=== PATIENT | female | born 1980 | race Caucasian/White ===

== ENCOUNTER 2021-03-03 20:16 | Emergency (ER) | payer BC, OTHER, SELFPAY ==
[2021-03-03 20:46] VITALS: BP 103/63; PULSE 92; RESP 16; TEMP 36.4; O2SAT 98; BMI 19.7
[2021-03-03 20:55] VITALS: BP 103/63; PULSE 92; RESP 16; TEMP 36.4; O2SAT 98
--- NOTE | 2021-03-03 21:36 | ED.ALCOHOL ---
HPI - Alcohol General Chief Complaint: Psychiatric Symptoms Stated Complaint: SECTION 12,SI Time Seen by Provider: 03/03/21 21:04 Source: patient Mode of arrival: ambulatory Limitations: other (clinically intoxicated) History of Present Illness HPI narrative: Patient is a 40-year-old female with no significant past medical history who was BIBA after making statements to her brother that she did not want to be alive and wanted to be with her mother who 10 years ago. Patient states she was sober for 10 years and started drinking a few months ago and had 5 nips a day. She states people were attacking her on Facebook and mother's day post and really got to her and then she drank alcohol and that she became emotional. She states she has absolutely no intention of harming herself, has no plan. Has no history of anxiety depression. Takes no mental health medications and does not see a therapist or psychiatrist. Patient denies auditory hallucinations, visual hallucinations or thoughts of harming others. Related Data Allergies Allergy/AdvReac Type Severity Reaction Status Date / Time clarithromycin [From BIAXIN] Allergy Unknown HIVES Unverified 07/10/20 15:24 Review of Systems Review of Systems: Yes all other systems are reviewed and are negative [facility] Social History Social History Alcohol intake: current Alcohol intake frequency: 3 or more drinks per day Alcohol type: hard liquor Smoking Status: Current every day smoker Use of substances other than those prescribed or required for medical reasons: No Advance Directives: No Advance Directives Information Provided: Yes Patient : No Physical Exam Vital Signs: Vital Signs: Last Vital Signs Temp 97.5 F 03/03/21 20:55 Pulse 92 03/03/21 20:55 Resp 16 03/03/21 20:55 BP 103/63 03/03/21 20:55 Pulse Ox 98 03/03/21 20:55 Body Mass Index 19.7 Const: General: cooperative, healthy appearing, comfortable and intoxicated appearing Nutritional Appearance: average body habitus Orientation/consciousness: patient oriented x3 HENMT: Head: Yes normal to inspection, Yes No palpable skull fracture present, Yes normocephalic and Yes atraumatic Ears: hearing grossly normal bilaterally General nose exam: Normal external nose present Face and sinus: Yes normal facial exam Eyes: General: appearance normal, both eyes and all related structures Neck: Neck: Yes normal visual inspection, Yes full ROM and Yes supple Resp: Effort & Inspection: normal respiratory effort and able to speak in complete sentences Skin: General skin exam: no rashes or lesions noted Neuro: General: patient oriented x3 Extrem: General: Yes normal to inspection and Yes full ROM Course Course Course Narrative: Patient is a 40-year-old female who was BIBA after making SI statements after becoming intoxicated. Patient is clinically intoxicated. Patient is requesting to leave and is trying to obtain a ride home. I told her I would write a work note for her for tomorrow. She wants to leave because she is concerned about getting stuck care and not being able to go to work tomorrow. She does states she had a COVID test this morning and it was negative. She does not appear to have any symptoms in her vital signs are stable. Reevaluation(s) Reevaluation #1: Patient has obtained a ride home from someone who will assume responsibility to getting her home and staying with her for the night. Patient appears to have a situational depression and never actually stated she wanted to kill herself. She seems to have been triggered by mother's Day and on the Facebook posts and then drinking alcohol. Will diet counselor patient on seeking therapy for her drinking and her situational depression. Time: 21:43 MDM - Alcohol Lab Data Labs: Lab Results 03/03/21 Range/Units 21:21 COVID-19 (MANUEL) Negative (Negative) COVID-19 Clin Com See Note Discharge Plan Discharge Clinical Impression: Situational depression Alcohol intoxication Qualifiers: Complication of substance-induced condition: uncomplicated Qualified Code(s): F10.920 - Alcohol use, unspecified with intoxication, uncomplicated Patient Disposition: Home, Self-Care Instructions: Alcohol Intoxication (ED) Additional Instructions: I would recommend following up with your primary care doctor and perhaps seeking some talk therapy to help you with your situational depression. Would also recommend some alcohol counseling. Please do not drive a motor vehicle until you are sober, please stay with your sober ride home until the effects of the alcohol you have drink today have worn off. Please do not drink any more alcohol today. Referrals: Ted Finnegan MD [Physician] - 2 days (follow up ED visit, alcohol intoxication and situational depression)
[2021-03-03 21:44] LABS: COVID-19 Test Negative (Negative)
[2021-03-03 21:58] LABS: Amphetamine Screen Urine Not Detected (Not Detect); Barbiturates, Urine Not Detected (Not Detect); Benzodiazepines Screen Urine Not Detected (Not Detect); Cannabinoid Screen Urine Not Detected (Not Detect); Cocaine Screen Urine Not Detected (Not Detect); Opiate Screen Urine Not Detected (Not Detect); Phencyclidine Screen Urine Not Detected (Not Detect)
[2021-03-03 22:05] LABS: Ethanol 278 mg/dL
== END 2021-03-03 22:07 | disposition home or self-care (01) ==
PROVIDERS: Physician Assistant; Emergency Provider Internal Medicine
DX: F32.89 Other specified depressive episodes (principal); F10.920 Alcohol use, unspecified with intoxication, uncomplicated; Y90.8 Blood alcohol level of 240 mg/100 ml or more; F17.200 Nicotine dependence, unspecified, uncomplicated; Z20.822 Contact with and (suspected) exposure to COVID-19
CPT/HCPCS: 36415; 80307; 80320; 87635; 99284

== ENCOUNTER 2022-06-27 14:10 | Emergency (ER) | payer BC, OTHER, SELFPAY ==
--- NOTE | 2022-06-27 14:26 | ED.ALCOHOL ---
HPI - Alcohol General Chief Complaint: ETOH/Substance Use Stated Complaint: ETOH Time Seen by Provider: 06/27/22 14:22 Source: patient and EMS Mode of arrival: EMS History of Present Illness HPI narrative: 41-year-old female with a past medical history of ETOH abuse brought in by ambulance S[facility]P bystand[facility] Patient was found by EMS in her car drinking. Patient reports wanting to go back to [place]. Denies SI/HI. Denies illicit substances. Will not quantify amount of ETOH used. Patient is emotional. Denies any injury/trauma or fall MD complaint: alcohol intoxication Last drink: Just prior to admission Related Data Allergies Allergy/AdvReac Type Severity Reaction Status Date / Time clarithromycin [From BIAXIN] Allergy Unknown HIVES Unverified 07/10/20 15:24 Review of Systems Review of Systems: ROS limited secondary to patient's acute intoxication Psych: No Depression, No SI/H Yes all other systems are reviewed and are negative Constitutional: Constitutional: Reports as per HPI COUNT INCLUDES THE [facility] Past Medical History Attestation statement: The following information was validated with the patient. Social History Social History Alcohol intake: current Alcohol intake frequency: 3 or more drinks per day Alcohol type: hard liquor Advance Directives: No Advance Directives Information Provided: Yes Physical Exam ED Vital Signs: Vital Signs - 24 hr 06/27/22 14:28 06/27/22 16:11 Temperature 98.1 F Pulse Rate 110 H 99 Respiratory Rate 15 16 Blood Pressure 117/81 96/67 Pulse Oximetry 96 96 Oxygen Delivery Method Room Air Room Air BMI result Body Mass Index 24.2 Const Other: + EtOH odor on breath General: no acute distress and intoxicated appearing Orientation/consciousness: patient oriented x3 Limitations: no limitations HENMT Head: Yes normal to inspection, Yes atraumatic, No Joel's sign and No raccoon eyes Ears: hearing grossly normal bilaterally General nose exam: Normal external nose present Face and sinus: Yes normal facial exam Eyes General: appearance normal, both eyes and all related structures EOM: EOMs intact bilaterally Neck Neck: Yes normal visual inspection and Yes no meningeal signs Resp Effort & Inspection: normal respiratory effort and no respiratory distress Cardio Rate: regular rate Heart sounds: S1 normal heart sound present and S2 normal heart sound present GI Inspection: Yes normal to inspection Palpation (GI): Soft to palpation, nontender, no guarding and not rigid Skin Rashes: no rashes Wounds: no wounds Neuro General: patient oriented x3, tone normal, moves all extremities and no meningeal signs Extrem General: Yes normal to inspection Course Course Course Narrative: -[id number]--was just informed by patient's nurse that patient eloped to the ED, this was unwitnessed. Police and security were notified MDM - Alcohol MDM Narrative Medical decision making narrative: 41-year-old female with a past medical history of ETOH abuse brought in by ambulance S/P bystander called stating patient was [place]. On exam vital signs stable ETOH odor on breath, no evidence of trauma, [place], initially combative however redirectable. Denies SI. Plan: Observe and reassess for clinical sobriety Medical Records Attestation: I reviewed the patient's medical records. Lab Data Attestation: I reviewed the patient's lab results. Discharge Plan Discharge Clinical Impression: Alcohol intoxication Patient Disposition: Still a Patient Instructions: Abuse of Alcohol (ED) Additional Instructions: Do not drink alcohol or take drugs this can kill you If you have thoughts of hurting herself or others return to the emergency department Referrals: ED Physician,Generic [Emergency Provider] -
[2022-06-27 14:28] VITALS: BP 117/81; BP 122/82; PULSE 110; RESP 15; O2SAT 96; BMI 24.2
[2022-06-27 16:11] VITALS: BP 96/67; PULSE 99; RESP 16; TEMP 36.7; O2SAT 96
== END 2022-06-27 20:22 | disposition still patient (30) ==
PROVIDERS: Emergency Provider Internal Medicine
DX: F10.129 Alcohol abuse with intoxication, unspecified (principal); Y90.9 Presence of alcohol in blood, level not specified
CPT/HCPCS: 99283

== ENCOUNTER 2025-04-14 13:16 | Emergency (ER) | payer BC, OTHER, SELFPAY ==
[2025-04-14 13:27] VITALS: BP 138/80; PULSE 97; RESP 20; TEMP 36.4; O2SAT 95; BMI 24.3
--- NOTE | 2025-04-14 13:29 | ED_ITS ---
HPI - Altered Mental Status General Chief Complaint: ETOH/Substance Use Stated Complaint: ETOH Time Seen by Provider: 04/14/25 13:26 History of Present Illness HPI narrative: Patient is a 44-year-old female presented today with agitation after drinking. Patient was in police custody. Police felt patient was to sedated. Decided to bring patient to the ED. on arrival patient became very agitated. Moving around. Screaming. Patient's sugar was checked by EMS to be a 94. Patient unable to give detailed history Related Data Allergies Allergy/AdvReac Type Severity Reaction Status Date / Time clarithromycin (From BIAXIN) Allergy Unknown HIVES Verified 04/14/25 13:29 Review of Systems 2 Review of Systems: unable to obtain review of systems [facility] Social History Social History Unable to assess alcohol history related to: Unknown Alcohol intake: current Alcohol intake frequency: 3 or more drinks per day Alcohol type: hard liquor Advance Directives: No Advance Directives Information Provided: No Do you have a plan to hurt others: No Plan Physical Exam ED Vital Signs: Vital Signs - 24 hr 04/14/25 13:27 04/14/25 14:18 Temperature 97.6 F Pulse Rate 97 81 Respiratory Rate 20 14 Blood Pressure 138/80 94/59 L Pulse Oximetry 95 92 Oxygen Delivery Method Room Air Room Air BMI result Body Mass Index 24.3 Appearance: lethargic but moving all extremity. Screaming. Eyes: Pupils equal, round and reactive to light. ENT: Pharynx normal. Neck: Normal inspection. Neck supple. No lymph nodes noted. No crepitus CVS: Normal heart rate and rhythm. Pulses normal. Normal S1 and S2 Respiratory: No respiratory distress. Breath sounds normal. No Wheezing. No rales Abdomen: Soft and nontender. No rigidity. No distention. good BS x4 Skin: Skin warm and dry. Normal skin color. Normal skin turgor. Extremities: No lower extremity edema. Neurovascular intact to all extremities. No Lacerations. No Rash Neuro: Oriented X 3. No motor deficit. No sensory deficit. Moving all extermities. No slurred speech Medications Administered Discontinued Medications Generic Name Dose Route Start Last Admin Trade Name Freq PRN Reason Stop Dose Admin Diphenhydramine HCl 50 mg 04/14/25 13:27 04/14/25 15:33 Diphenhydramine Hcl 50 Mg/Ml Vial IM 04/14/25 13:28 Not Given ONCE ONE Haloperidol Lactate 5 mg 04/14/25 13:27 04/14/25 15:33 Haloperidol Lactate 5 Mg/Ml Vial IM 04/14/25 13:28 Not Given ONCE ONE Sodium Chloride 1,000 mls @ 999 mls/hr 04/14/25 13:30 04/14/25 15:33 Ns IV 04/14/25 14:30 Not Given .Q1H1M MARIO ALBERTO Midazolam HCl 2 mg 04/14/25 13:27 04/14/25 15:33 Midazolam Hcl 2 Mg/2 Ml Vial IM 04/14/25 13:28 Not Given ONCE ONE Medical Decision Making Medical Decision Making [facility] Narrative: patient alcohol was approximately 400. At 15:30 patient is now awake alert. Aware that she is in the hospital. Aware self. Oriented. Will discharge to PD. In stable condition. Differential Diagnosis Alcohol intoxication Admission/Observation Consideration of admission/observation: Escalation of care including admission/observation considered Lab Data [facility] Lab Attestation statement: I reviewed the patient's lab results. 04/14/25 13:50 04/14/25 13:50 Labs: Lab Results 04/14/25 Range/Units 13:50 WBC 9.6 (4.8-10.8) X10*3/uL RBC 4.90 (4.20-5.50) X10*6/uL Hgb 15.7 (12.0-16.0) g/dl Hct 44.7 (37.0-47.0) % MCV 91.2 (80.0-98.0) fL MCH 32.0 (27.0-33.0) pg MCHC 35.1 H (31.0-35.0) g/dl RDW 13.0 (11.0-16.0) % Plt Count 284 (160-400) X10*3/uL MPV 9.8 (9.4-12.3) fL Immature Gran % (Auto) 0.6 H (0.0-0.4) % Neut % (Auto) 49.7 (45-73) % Lymph % (Auto) 37.0 (20-40) % Starke % (Auto) 6.8 (2-11) % Eos % (Auto) 4.4 H (0-4) % Baso % (Auto) 1.5 (0-2) % Lymph # (Auto) 3.6 (1.2-4.9) X10*3/uL Starke # (Auto) 0.7 (0.1-1.2) X10*3/uL Eos # (Auto) 0.4 (0.0-0.4) X10*3/uL Baso # (Auto) 0.1 (0.0-0.2) X10*3/uL Abs Immat Gran (auto) 0.06 H (0.00-0.03) X10*3/uL Absolute Neuts (auto) 4.8 (2.0-8.3) x10*3/uL Absolute Nucleated RBC 0.000 (0.0-0.012) X10*3/uL Nucleated RBC % (auto) 0.0 (0.0-0.2) /100WBC Sodium 144 (135-145) mmol/L Potassium 3.5 (3.3-5.1) mmol/L Chloride 111 H (96-108) mmol/L Carbon Dioxide 22 (22-29) mmol/L Anion Gap 15 (12-20) BUN 10 (9-16) mg/dL Creatinine 0.66 (0.5-1.4) mg/dL Estim Creat Clear Calc 103.9 Estimated GFR > 60 Random Glucose 84 (60-115) mg/dL Calcium 8.6 (8.4-10.2) mg/dL Total Bilirubin 0.2 (0.0-1.0) mg/dL Direct Bilirubin < 0.2 (0.0-0.5) mg/dL AST 22 (5-31) U/L ALT 19 (0-31) U/L Alkaline Phosphatase 65 (39-117) U/L Total Creatine Kinase 89 (26-140) U/L Total Protein 6.9 (6.5-8.0) g/dL Albumin 4.3 (3.5-5.0) g/dL Beta HCG, Quant < 2 mIU/mL Ethyl Alcohol 399 H* mg/dL Discharge Plan Discharge Clinical Impression: Alcoholic intoxication Patient Disposition: Home, Self-Care Instructions: Abuse of Alcohol (DC) Referrals: [facility] [Physician, Medical] - 04/17/25 Print Language: Tamazight
[2025-04-14 13:37] VITALS: BP 124/86; PULSE 94; O2SAT 94
--- NOTE | 2025-04-14 13:41 | PC.NURSE ---
patient brought in by PD custody, patient is only responsive to noxious stimuli. patient changed over by medical staff and security in room due to patient condition, patient in hospital attire, belongings secured. patient unable to answer any questions at this time, speech is incoherent. patient is in PD handcuffs, both wrists to side rails. VSS at this time, patient maintaining own airway, pupils are equal and reactive bilat.
[2025-04-14 13:56] LABS: MANUAL DIFF FLAG NO
[2025-04-14 13:57] LABS: Basophils Absolute Auto 0.1 X10*3/uL (0.0-0.2); Basophils Percent Auto 1.5 % (0-2); Eosinophils Absolute Auto 0.4 X10*3/uL (0.0-0.4); Eosinophils Percent Auto 4.4 % (0-4); Hematocrit 44.7 % (37.0-47.0); Hemoglobin 15.7 g/dl (12.0-16.0); Imm Gran Abs Auto 0.06 X10*3/uL (0.00-0.03); Imm Gran Pct Auto 0.6 % (0.0-0.4); Lymphocytes Absolute Auto 3.6 X10*3/uL (1.2-4.9); Mean Corpuscular HGB Conc 35.1 g/dl (31.0-35.0); Mean Corpuscular Volume 91.2 fL (80.0-98.0); Mean Platelet Volume 9.8 fL (9.4-12.3); Monocytes Absolute Auto 0.7 X10*3/uL (0.1-1.2); Monocytes Percent Auto 6.8 % (2-11); Neutrophils Absolute Auto 4.8 x10*3/uL (2.0-8.3); Neutrophils Percent Auto 49.7 % (45-73); Platelet Count 284 X10*3/uL (160-400); White Blood Count 9.6 X10*3/uL (4.8-10.8)
[2025-04-14 14:18] VITALS: BP 94/59; PULSE 81; RESP 14; O2SAT 92
[2025-04-14 14:18] LABS: Alanine Aminotransferase 19 U/L (0-31); Albumin Level 4.3 g/dL (3.5-5.0); Alkaline Phosphatase 65 U/L (39-117); Anion Gap 15 (12-20); Aspartate Amino Transferase 22 U/L (5-31); Bilirubin Direct < 0.2 mg/dL (0.0-0.5); Bilirubin Total 0.2 mg/dL (0.0-1.0); Blood Urea Nitrogen 10 mg/dL (9-16); Calcium 8.6 mg/dL (8.4-10.2); Carbon Dioxide 22 mmol/L (22-29); Chloride 111 mmol/L (96-108); Creatinine Clr Calc Pharmacy 103.9; Estimated Glomerular Filt Rate > 60; Ethanol 399 mg/dL; Glucose Random 84 mg/dL (60-115); HCG Quantitative < 2 mIU/mL; Potassium 3.5 mmol/L (3.3-5.1); Sodium 144 mmol/L (135-145); Total Protein 6.9 g/dL (6.5-8.0)
--- NOTE | 2025-04-14 15:32 | PC.NURSE ---
patient becoming more awake and alert, ED provider notified. patient going to eat snack prior to dc with PD
[2025-04-14 15:37] VITALS: BP 93/51; PULSE 82; RESP 12; TEMP 36.3; O2SAT 95
[2025-04-14 15:55] VITALS: BP 93/51; PULSE 82; RESP 12; TEMP 36.3; O2SAT 95
--- NOTE | 2025-04-14 15:55 | PC.NURSE ---
patient dc in pd custody
== END 2025-04-14 15:55 ==
PROVIDERS: Emergency Provider Emergency Medicine Emergency Medical Services
DX: F10.129 Alcohol abuse with intoxication, unspecified (principal); R10.2 Pelvic and perineal pain; Y90.8 Blood alcohol level of 240 mg/100 ml or more; Z51.81 Encounter for therapeutic drug level monitoring; Z79.899 Other long term (current) drug therapy
CPT/HCPCS: 36415; 80048; 80076; 80307; 82550; 84702; 85025; 99284